=== PATIENT | female | born 1970 ===

== ENCOUNTER 2020-08-27 13:51 | Emergency (ER) | payer SELFPAY ==
[~2020-08-27 13:51] MED LIST: Iopamidol 370 76% 100 ML VIAL ONE
--- NOTE | 2020-08-27 14:43 | RAD ---
PORTABLE CHEST: HISTORY: Cough. COMPARISON: Comparison is made t a chest film of 08/22/2020. FINDINGS: There continues to be bilateral hazy [id number] infiltrates which are more prominent in the pe ripheral right lung, both upper and lower lung chapa. Also some hazy infiltrate in the left mid alexandra g peripherally. The right lung infiltrates have progressed when compared to 08/22/2020. IMPRESSION: Bilateral infiltrates more extensive on the right. There has been progression when compared to 08/22. POS: AH
[2020-08-27 14:52] LABS: ALT (SGPT) 21 U/L (8-55); AST (SGOT) 17 U/L (5-34); Albumin 3.5 g/dL (3.5-5.0); Alkaline Phosphatase 83 U/L (40-110); Anion Gap 13 mmol/L (10-20); BUN (Urea Nitrogen) 18 mg/dL (9.8-20.1); Bilirubin, Total 0.5 mg/dL (0.2-1.2); Calc. Creatinine Clearance 0 mL/min (70-130); Calcium 8.9 mg/dL (7.8-10.44); Carbon Dioxide 26 mmol/L (22-29); Chloride 106 mmol/L (98-107); Estimated GFR-MDRD 85; Globulin 3.3 g/dL (2.4-3.5); Glucose 107 mg/dL (70-105); Hemoglobin 10.9 g/dL (12.0-16.0); Mean Corpuscular Hemoglobin 29.4 pg (27.0-31.0); Mean Corpuscular Volume 89.2 fL (78.0-98.0); Mean Platelet Volume 8.2 fL (7.4-10.4); Platelet Count 348 thou/uL (130-400); Protein, Total 6.8 g/dL (6.0-8.3); RBC Distribution Width 10.1 % (11.5-14.5); Sodium 141 mmol/L (136-145); White Blood Cell (WBC) Count 5.4 thou/uL (4.8-10.8)
[2020-08-27 15:12] LABS: Band 1 % (5-11); Eosinophils 2 % (0-10); Lymphocytes 41 % (21-51); MDiff Complete? YES; Monocytes 3 % (0-10); Neutrophil 53 % (42-75); Platelet Morphology Comment Appears Adequate; RBC Morphology Normal
--- NOTE | 2020-08-27 16:55 | CT ---
EXAM: CTA of the chest HISTORY: Dyspnea COMPARISON: None TECHNIQUE: Multiple contiguous axial images were obtained a CTA of the chest with contrast per pulmon demetrio embolism protocol. 3-D oblique MIP reformats and direct coronal reformats were performed. FINDINGS: HEART: Normal in size without focal cardiac abnormality. PULMONARY ARTERIES: Normal in caliber without filling defects to suggest pulmonary emboli. MEDIASTINUM: No hilar or mediastinal lymphadenopathy. LUNGS: Multifocal peripheral airspace opacities are seen in the lungs. These findings are consistent with Covid pneumonia. There is a calcified granuloma in the left lower lobe. PLEURAL SPACE: No pleural effusion or pneumothorax. CHEST WALL SOFT TISSUES: Unremarkable VISUALIZED OSSEOUS STRUCTURES: No acute abnormality. VISUALIZED SUBDIAPHRAGMATIC STRUCTURES: 1.8 cm left adrenal mass. IMPRESSION: 1. No evidence of pulmonary thromboembolism 2. Multifocal peripheral opacities are consistent with Covid pneumonia. 3. Nonspecific left adrenal mass. A nonemergent adrenal mass protocol CT should be performed for furt her evaluation.
[2020-08-27] MEDS ORDERED: Aspirin Chewable 81 MG TAB ONE (17:28)
== END 2020-08-27 18:00 | disposition home or self-care (01) ==
LOC: NAV ERS 13:51
DX: U07.1 COVID-19 (principal); J12.89 Other viral pneumonia
CPT/HCPCS: 71045; 71275; 80053; 83605; 85025; 85379; Q9967

== ENCOUNTER 2020-08-28 17:18 | Emergency (ER) | payer SELFPAY ==
[2020-08-28 18:19] LABS: #Basophils 0.1 thou/uL (0.0-0.2); #Eosinphils 0.1 thou/uL (0.0-0.7); #Lymphocytes 2.8 thou/uL (1.20-3.40); #Monocytes 0.6 thou/uL (0.11-0.59); #Neutrophils 3.1 thou/uL (1.40-6.50); %Eosinophils 2.1 % (0.0-10.0); %Monocytes 8.2 % (0.0-10.0); %Neutrophils 46.8 % (42.0-75.0); Hemoglobin 11.3 g/dL (12.0-16.0); Mean Corpuscular Hemoglobin 30.7 pg (27.0-31.0); Mean Corpuscular Volume 90.4 fL (78.0-98.0); Mean Platelet Volume 7.5 fL (7.4-10.4); Platelet Count 367 thou/uL (130-400); Red Blood Cell (RBC) Count 3.69 mill/uL (4.20-5.40); White Blood Cell (WBC) Count 6.7 thou/uL (4.8-10.8)
--- NOTE | 2020-08-28 18:26 | RAD ---
Chest AP view INDICATION: History of night sweats and pneumonia; Difficulty breathing and back pain COMPARISON: Chest radiograph dated August 27, 2020 FINDINGS: Lungs: Bilateral airspace disease persists Cardiac silhouette: Mild cardiomegaly is stable Pulmonary vasculature: Normal Pleural spaces: No pleural effusion or pneumothorax is demonstrated. Upper abdomen: No abnormality seen. Osseous structures: No acute osseous abnormality. Additional findings: None. IMPRESSION: Stable bilateral pneumonia. Stable mild cardiomegaly without evidence of cardiac decompensation
[2020-08-28 18:33] LABS: ALT (SGPT) 19 U/L (8-55); AST (SGOT) 19 U/L (5-34); Albumin 3.7 g/dL (3.5-5.0); Alkaline Phosphatase 82 U/L (40-110); Anion Gap 15 mmol/L (10-20); BUN (Urea Nitrogen) 17 mg/dL (9.8-20.1); Bilirubin, Total 0.5 mg/dL (0.2-1.2); Calc. Creatinine Clearance 0 mL/min (70-130); Carbon Dioxide 27 mmol/L (22-29); Chloride 103 mmol/L (98-107); Estimated GFR-MDRD 88; Globulin 3.4 g/dL (2.4-3.5); Glucose 99 mg/dL (70-105); Potassium 4.5 mmol/L (3.5-5.1); Protein, Total 7.1 g/dL (6.0-8.3); Sodium 140 mmol/L (136-145)
[2020-08-28] MEDS ORDERED: Ondansetron ODT 4 MG TAB ONE (18:50)
[2020-08-28] MEDS ORDERED: Acetaminophen 500 MG TAB ONE (18:50)
[2020-08-28] MEDS ORDERED: Dexamethasone 20 MG/5 ML VIAL ONE (18:50)
== END 2020-08-28 19:13 | disposition home or self-care (01) ==
LOC: NAV ERS 17:18
DX: U07.1 COVID-19 (principal); J12.89 Other viral pneumonia; Z79.82 Long term (current) use of aspirin
CPT/HCPCS: 36415; 71045; 80053; 85025; 96374; J1100; Q0162